=== PATIENT | female | born 1935 | race Native Hawaiian/Other Pacific Islander ===

== ENCOUNTER 2019-04-05 06:30 | Inpatient (IN) | payer OTHER, MEDICARE ==
[2019-04-05] VITALS (52 sets, daily range): BP systolic 96–1184; BP diastolic 46–778; TEMP 97.4–98; Ht 167.6 cm; Wt 46.0 kg
[~2019-04-05] VITALS: Ht 167.6 cm; Wt 46.0 kg
[~2019-04-05 06:30] MED LIST: ALBUSOL INH; AQUAPHOR EX; BISOPROL FUM10 MG PO; BUDE1AER5 INH; FURO40TA93 PO; SPIR50TA8 PO; TYLENOL325 MG PO; XARELTO20 MG PO
[2019-04-05] MEDS ORDERED: APIX1TAB PO (13:15)
[2019-04-05] MEDS ORDERED: CHOL4POW11 PO (13:16)
[2019-04-05] MEDS ORDERED: ESCI10TA PO (13:17)
[2019-04-05] MEDS ORDERED: FLUP25IN8 IM (13:17)
[2019-04-05] MEDS ORDERED: Vancocin HCl 125MG C PO (13:18)
[2019-04-05] MEDS ORDERED: ONDA2INJ2 IM (13:19)
[2019-04-05] MEDS ORDERED: REMERON 15MG TAB PO (13:20)
[2019-04-05] MEDS ORDERED: LACTSYP31 PO (13:20)
[2019-04-05] MEDS ORDERED: PANTOPRAZOLE 40MG TA PO (16:37)
[2019-04-05] MEDS ORDERED: VANCOCIN HCL125 MG PO (16:40)
[2019-04-05] MEDS ORDERED: OLAN10INJ IM (16:43)
[2019-04-06] VITALS (78 sets, daily range): BP systolic 95–1312; BP diastolic 51–94; TEMP 97.8–98.8
[2019-04-06 08:08] LABS: PLATELET COUNT 383 K/uL (152-353)
[2019-04-06 08:20] LABS: POTASSIUM 4.3 mmol/L (3.6-5.2)
[2019-04-07] VITALS (29 sets, daily range): BP systolic 97–153; BP diastolic 41–89; TEMP 97.7–98.7
[2019-04-07 04:04] LABS: PLATELET COUNT 400 K/uL (152-353)
[2019-04-07 04:30] LABS: POTASSIUM 4.3 mmol/L (3.6-5.2)
[2019-04-08] VITALS (20 sets, daily range): BP systolic 110–154; BP diastolic 40–99; TEMP 96–98.5
[2019-04-09] VITALS (25 sets, daily range): BP systolic 96–1686; BP diastolic 38–100; TEMP 97.2–98.4
[2019-04-09 15:01] LABS: POTASSIUM 3.7 mmol/L (3.6-5.2)
[2019-04-09 15:10] LABS: PLATELET COUNT 401 K/uL (152-353)
[2019-04-10] VITALS (14 sets, daily range): BP systolic 100–179; BP diastolic 50–96; TEMP 97.2–98.2
[2019-04-10 09:04] LABS: PLATELET COUNT 425 K/uL (152-353)
[2019-04-10 09:50] LABS: POTASSIUM 3.9 mmol/L (3.6-5.2)
[2019-04-10] MEDS ORDERED: ZIPR20IN IM (16:31)
== END 2019-04-10 20:50 | disposition short-term general hospital (02) | DRG 189 ==
LOC: ED 06:30 → ICU 09:45 → EDBD 09:45 → MED/SURG 04-10 16:32
PROVIDERS: Family Medicine; Internal Medicine; ADMIT Family Medicine
DX: J96.01 Acute respiratory failure with hypoxia (principal); J18.8 Other pneumonia, unspecified organism; I50.33 Acute on chronic diastolic (congestive) heart failure; E43 Unspecified severe protein-calorie malnutrition; J44.0 Chronic obstructive pulmonary disease with (acute) lower respiratory infection; J44.1 Chronic obstructive pulmonary disease with (acute) exacerbation; J90 Pleural effusion, not elsewhere classified; F20.0 Paranoid schizophrenia; N39.0 Urinary tract infection, site not specified; I31.3 Pericardial effusion (noninflammatory); Z79.01 Long term (current) use of anticoagulants; I48.2 Chronic atrial fibrillation; I11.0 Hypertensive heart disease with heart failure; Z86.73 Personal history of transient ischemic attack (TIA), and cerebral infarction without residual deficits; M15.8 Other polyosteoarthritis; B35.8 Other dermatophytoses; J84.89 Other specified interstitial pulmonary diseases; E87.6 Hypokalemia; T17.920A Food in respiratory tract, part unspecified causing asphyxiation, initial encounter
CPT/HCPCS: 36415; 36600; 80048; 80053; 81000; 82272; 82550; 82805; 83880; 84484; 85027; 85379; 93005; 93306; 94640; 94660; 94664; 94760; 99285; J1956; J0456; J1885; J1940; J2060; J2550; J3486; J3490

== ENCOUNTER 2019-04-10 19:30 | Inpatient (IN) | payer OTHER ==
[~2019-04-10] VITALS: Ht 167.6 cm; Wt 43.1 kg
[~2019-04-10 19:30] MED LIST changes: +APIX1TAB PO; +CHOL4POW11 PO; +ESCI10TA PO; +FLUP25IN8 IM; +LACTSYP31 PO; +OLAN10INJ IM; +ONDA2INJ2 IM; +PANTOPRAZOLE 40MG TA PO; +REMERON 15MG TAB PO; +VANCOCIN HCL125 MG PO; +Vancocin HCl 125MG C PO; +ZIPR20IN IM
[2019-04-10 21:58] VITALS: BP 144/73; TEMP 98; Ht 167.6 cm; Wt 43.1 kg
[2019-04-11 19:51] VITALS: BP 125/80; TEMP 98.2
[2019-04-12 20:00] VITALS: TEMP 99
[2019-04-13 08:00] VITALS: TEMP 99.4
== END 2019-04-13 16:27 | disposition still patient (30) | DRG 189 ==
LOC: MED/SURG 19:30
PROVIDERS: ADMIT Internal Medicine
DX: J96.00 Acute respiratory failure, unspecified whether with hypoxia or hypercapnia (principal); J18.8 Other pneumonia, unspecified organism; E43 Unspecified severe protein-calorie malnutrition; I50.33 Acute on chronic diastolic (congestive) heart failure; I31.3 Pericardial effusion (noninflammatory); F20.89 Other schizophrenia; R62.7 Adult failure to thrive; I10 Essential (primary) hypertension; F03.90 Unspecified dementia, unspecified severity, without behavioral disturbance, psychotic disturbance, mood disturbance, and anxiety; J84.89 Other specified interstitial pulmonary diseases; I48.2 Chronic atrial fibrillation; Z86.73 Personal history of transient ischemic attack (TIA), and cerebral infarction without residual deficits
CPT/HCPCS: 94640; 94664; 94760; J3486

== ENCOUNTER 2019-04-13 16:27 | Inpatient (IN) | payer OTHER ==
[~2019-04-13] VITALS: Ht 167.6 cm; Wt 43.7 kg
[2019-04-13 19:21] VITALS: BP 144/73; TEMP 98; Ht 167.6 cm; Wt 43.7 kg
[2019-04-14 21:00] VITALS: BP 153/90; TEMP 97.9
[2019-04-15 20:00] VITALS: TEMP 97.3
== END 2019-04-16 15:15 | DRG 951 ==
LOC: MED/SURG 16:27
PROVIDERS: ADMIT Internal Medicine
DX: Z51.5 Encounter for palliative care (principal); J44.9 Chronic obstructive pulmonary disease, unspecified
CPT/HCPCS: 94760